=== PATIENT | male | born 1955 | race Hispanic/Latino ===

== ENCOUNTER → 2018-01-10 | Outpatient (CLI) | payer OTHER ==
[~2018-01-10] MED LIST: ACET-66 PO; ASPI-1197 PO; ATOR40TA69 PO; CYAN50TA2 PO; LISI-613 PO; [UNRECOGNIZED DRUG - OTHER] PO
== END | disposition home or self-care (01) ==
LOC: SHCH 08:46
PROVIDERS: ATTEND Internal Medicine Cardiovascular Disease
DX: I73.9 Peripheral vascular disease, unspecified (principal)
CPT/HCPCS: 93978